=== PATIENT | male | born 1960 | race Two or more races ===

== ENCOUNTER 2017-08-29 08:50 | Inpatient (IN) | payer MEDICAID, OTHER ==
[~2017-08-29] VITALS: Ht 177.8 cm; Wt 108.9 kg
[~2017-08-29 08:50] MED LIST: AMLODIPINE BESY10 MG ORAL; ASPIRIN81 M3 PO; ATIVAN1 MG ORAL; BELLADONNA30 MG/100 TLING; BENAZEPRIL HCL40 MG ORAL; LISINOPRIL10 MG ORAL; MAGNESIUM250 M2 PO; TENORMIN25 MG ORAL; TRIBENZOR 40-11 EAC1 ORAL; TYLENOL650 MG/20. ORAL
[2017-08-29 09:00] VITALS: BP 174/108
[2017-08-29 10:01] LABS: BASOPHILS % (AUTO) 1.2 % (0.0-2.0); EOSINOPHILS % (AUTO) 2.1 % (0.0-3.0); HEMATOCRIT 33.6 % (42.0-52.0); HEMOGLOBIN 11.7 G/DL (14.2-18.0); LYMPHOCYTES % (AUTO) 35.2 % (20.0-45.0); MEAN CORPUSCULAR VOLUME 91 FL (80-99); MONOCYTES % (AUTO) 5.9 % (1.0-10.0); NEUTROPHILS % (AUTO) 55.6 % (45.0-75.0); PLATELET COUNT 316 K/UL (150-450); RED BLOOD COUNT 3.68 M/UL (4.70-6.10); RED CELL DISTRIBUTION WIDTH 11.1 % (11.6-14.8)
[2017-08-29 10:05] LABS: ANION GAP 14 mmol/L (5-15); BLOOD UREA NITROGEN 48 mg/dL (7-18); CALCIUM 9.1 MG/DL (8.5-10.1); CARBON DIOXIDE 20 MMOL/L (21-32); CHLORIDE 102 MMOL/L (98-107); CREATININE 5.5 MG/DL (0.55-1.30); POTASSIUM 4.3 MMOL/L (3.5-5.1); SODIUM 136 MMOL/L (136-145)
[2017-08-29 10:10] LABS: ALANINE AMINOTRANSFERASE 27 U/L (12-78); ALBUMIN 3.4 G/DL (3.4-5.0); ALBUMIN/GLOBULIN RATIO 0.7 (1.0-2.7); ALKALINE PHOSPHATASE 76 U/L (46-116); ASPARTATE AMINO TRANSFERASE 19 U/L (15-37); BILIRUBIN,TOTAL 0.4 MG/DL (0.2-1.0)
[2017-08-29 10:27] LABS: APPEARANCE,URINE CLEAR; BILIRUBIN, URINE NEGATIVE (NEGATIVE); COLOR,URINE PALE YELLOW; GLUCOSE, URINE (UA) 1+ (NEGATIVE); KETONES,URINE NEGATIVE (NEGATIVE); LEUKOCYTE ESTERASE ,URINE NEGATIVE (NEGATIVE); NITRITE,URINE NEGATIVE (NEGATIVE); PH,URINE 6 (4.5-8.0); PROTEIN,URINE 4+ (NEGATIVE); UROBILINOGEN,URINE NORMAL MG/DL (0.0-1.0)
[2017-08-29 10:34] VITALS: BP 157/100
--- NOTE | 2017-08-29 10:45 | Diagnostic Imaging Report ---
Indication: Altered mental status Technique: Continuous helical CT scanning of the head was performed utilizing automated exposure control without intravenous contrast material. Axial and coronal reconstructions were obtained. Comparison: 11/03/2015 CT dose: Total DLP 1400 mGycm; CTDI vol 70.4 mGy Findings: There is no acute intracranial hemorrhage, mass effect or cortical edema. The ventricles, cisterns and sulci are prominent consistent with atrophy. Periventricular and subcortical hypoattenuation are seen, a nonspecific finding. There is an old lacunar infarct of the left internal capsule which is new from 11/03/2015. Old infarct in the left superior cerebellum is unchanged. Sella is grossly unremarkable. Visualized mastoid air cells and paranasal sinuses are unremarkable. No focal lesions of the bony calvarium or soft tissues of the scalp are seen. Impression: No evidence of acute intracranial hemorrhage, mass effect or cortical edema. MRI may be obtained for more sensitive evaluation as clinically indicated. Atrophy and nonspecific periventricular and subcortical hypoattenuation suggestive of chronic ischemic microvascular changes. Old lacunar infarct of the left internal capsule but new from 11/03/2015. Clinical correlation recommended. Old infarct in the left superior cerebellum. The CT scanner at [facility] is accredited by the [employer] and the scans are performed using protocols designed to limit radiation exposure to as low as reasonably achievable to attain images of sufficient resolution adequate for diagnostic evaluation.
--- NOTE | 2017-08-29 10:46 | Diagnostic Imaging Report ---
Indication: Chest pain Technique: XRAY Chest 1v Comparison: 12/03/2015 Findings: Cardiac silhouette is again prominent. There is no gross consolidation or pleural effusion although the left costophrenic angle is not included. Osseous structures are stable. Impression: Limited exam without inclusion of the left costophrenic angle. Otherwise no gross acute cardiopulmonary disease. Cardiomegaly.
--- NOTE | 2017-08-29 10:50 | Emergency Room Report ---
History of Present Illness General Chief Complaint: Chest Pain Source: Patient Present Illness HPI 56yo m complains of left upper chest and shoulder aching type constant pain radiating down his left arm with a sensation of numbness to his left arm He reports this started when he woke up today and was walking in the bathroom, reports BP was 220s/110s at home He reports he never felt weak in his arm and reports the pain seemed to be mostly in his shoulder but also his upper chest on the left side He denies syncope, leg swelling, cough, shortness of breath, slurred speech, weakness, or any other complaints Allergies: Coded Allergies: No Known Allergies (Unverified , 08/10/13) Patient History Past Medical History: see triage record Reviewed Nursing Documentation: PMH: Agreed, PSxH: Agreed Nursing Documentation-PMH Hx Cardiac Problems: Yes Hx Hypertension: Yes Hx Diabetes: Yes Hx Cancer: No Hx Gastrointestinal Problems: No Hx Neurological Problems: No Hx Cerebrovascular Accident: Yes Hx Dizziness: Yes Hx Headaches: Yes Hx Numbness: Yes - left arm Review of Systems All Other Systems: negative except mentioned in HPI Physical Exam Vital Signs Date Time Temp Pulse Resp B/P (MAP) Pulse Ox O2 Delivery O2 Flow Rate FiO2 08/29/17 08:53 97.4 98 24 215/124 99 Room Air 97.3 Sp02 EP Interpretation: reviewed, normal General Appearance: no apparent distress, alert, non-toxic Head: normocephalic Eyes: bilateral eye normal inspection, bilateral eye PERRL, bilateral eye EOMI ENT: normal ENT inspection, hearing grossly normal, normal pharynx, no angioedema, normal voice, moist mucus membranes Neck: normal inspection, full range of motion, supple, supple/symm/no masses Respiratory: chest non-tender, lungs clear, normal breath sounds, chest symmetrical, palpation of chest normal Cardiovascular #1: normal peripheral pulses, regular rate, rhythm Cardiovascular #2: 2+ radial (R), 2+ radial (L) Gastrointestinal: normal inspection, non tender, soft, no mass, no guarding, no rebound Rectal: deferred Genitourinary: normal inspection, no CVA tenderness Musculoskeletal: back normal, gait/station normal, normal range of motion, non- tender, no calf tenderness Neurologic: alert, oriented x3, responsive, senior network engineer III-XII nml as tested - Completely normal cranial , motor strength/tone normal - 5 out of 5 strength in all , DTRs symmetric, sensory intact - Sensation intact to lig, cerebellar normal - Normal finger to nose n, speech normal, no pronator - No pronator drift at all Psychiatric: judgement/insight normal, memory normal, mood/affect normal, no suicidal/homicidal ideation Skin: normal color, no rash, warm/dry, normal turgor Lymphatic: no adenopathy Medical Decision Making Reaction to Intervention: Improved Diagnostic Impression: Primary Impression: Chest pain Additional Impression: Numbness ER Course 56-year-old male with history of hypertension, stroke with residual memory deficits, presents with left arm pain and numbness, as well as shoulder pain Symptoms concerning for possible acute coronary syndrome versus atypical stroke syndrome, normal head CT normal chest x-ray and normal EKG and labs Patient's blood pressure initially elevated now improved, we will admit as patient's Received aspirin and in no acute distress EKG Diagnostic Results EKG Time: 09:22 EP Interpretation: No ST elevations or depressions, no twi Rate: normal ST Segments: no acute changes ASA given to the pt in ED: Yes Rhythm Strip Diag. Results Rhythm Strip Time: 10:46 EP Interpretation: yes Rate: 87 Rhythm: NSR, no PVC's, no ectopy Chest X-Ray Diagnostic Results Chest X-Ray Diagnostic Results : Chest X-Ray Ordered: Yes # of Views/Limited/Complete: 1 View Indication: Chest Pain EP Interpretation: Yes PA Xray: Interpretation reviewed - Carmelo Higgins MD Interpretation: no consolidation, no effusion, no pneumothorax, no acute cardiopulmonary disease, other - +cardiomegaly, unchanged from previous cxr Impression: No acute disease Electronically Signed by: Carmelo Higgins MD CT/MRI/US Diagnostic Results CT/MRI/US Diagnostic Results : Imaging Test Ordered: ct head Impression no acute infarcts or bleeds, but +new infarcts in comparison from 2014 Last Vital Signs Date Time Temp Pulse Resp B/P (MAP) Pulse Ox O2 Delivery O2 Flow Rate FiO2 08/29/17 10:34 97.3 91 20 157/100 99 Room Air 97.3 Disposition: PLACE IN OBSERVATION Condition: Stable Signed Out To: Dr. Garcia to admit Referrals: [facility],REFERRING (PCP) CARMELO HIGGINS M.D Aug 29, 2017 10:50
[2017-08-29 11:23] VITALS: BP 131/81
[2017-08-29] MEDS ORDERED: Zolpidem 5mg tab ORAL PRN (12:45)
[2017-08-29] MEDS ORDERED: Atenolol 25mg tab ORAL SCH (18:00)
[2017-08-29] MEDS ORDERED: Heparin 5000 units/ml inj SUBQ SCH (21:00)
--- NOTE | 2017-08-29 21:45 | History and Physical Report ---
DATE OF ADMISSION: 08/29/2017 REASON FOR ADMISSION: Possible acute coronary syndrome versus acute CVA. HISTORY OF PRESENT ILLNESS: The patient is a 56-year-old male, who presents with left chest pain, left arm sensation and weakness. The patient woke up and noted also significantly elevated blood pressure. The patient presented to the emergency room and CT scan of the head, which is notable for old lacunar infarct. The patient denies any leg swelling, cough, shortness of breath, or slurred speech. PAST MEDICAL HISTORY: Notable for cardiac issues, hypertension, diabetes, prior history of CVA. MEDICATIONS: Reviewed. ALLERGIES: Reviewed. SOCIAL HISTORY: The patient is disabled. PHYSICAL EXAMINATION: GENERAL: A well-developed male, comfortable, presently in significant distress. VITAL SIGNS: Blood pressure 131/81, pulse 91, respirations 20, and saturation 99%. HEENT: Negative. NECK: Supple. No lymphadenopathy. LUNGS: Clear and symmetric. CARDIAC: S1 and S2. Regular rhythm. ABDOMEN: Soft and nontender. EXTREMITIES: No edema. NEUROLOGICALLY: Grossly nonfocal. LABORATORY AND DIAGNOSTIC DATA: Lab data reviewed. CT of the head showed old lacunar infarct. Laboratories, otherwise notable for white cell count of 14, BUN is 48, and creatinine 5.5. IMPRESSION: 1. Likely chronic renal failure. 2. Possible acute CVA. 3. Possible acute coronary syndrome. 4. History of hypertension. RECOMMENDATION: The patient was recommended serial troponins as well as nitrates, aspirin and beta-souleymane. Resumption of home medications and MRI of the brain as well as Cardiology evaluation as well as echocardiogram and carotid ultrasound. At present, the patient is refusing all care, would like to be discharged. I explained to him that this is potentially life-threatening and he may have some significant acute issues, however, the patient is adamant and will signed out against medical advice. The patient is fully alert and oriented x3 and he is fully competent to make his own decisions. Nurse was aware. Rashawn Garcia M.D. DR: NEO JOB#: [id number] CC:
[2017-08-30] MEDS ORDERED: Aspirin Baby 81mg ORAL SCH (09:00)
--- NOTE | 2017-08-30 16:27 | Cardiology Report ---
APPROVED REPORT EKG Measurement Heart [id number] Poor data quality, interpretation may be adversely affected Normal sinus rhythm Normal ECG
--- NOTE | 2017-09-02 03:45 | Discharge Summary 2 SIG ---
DATE OF ADMISSION: 08/29/2017 DATE OF SIGNING AGAINST MEDICAL ADVICE: 08/29/2017. REASON FOR ADMISSION: 56-year-old male with a history of hypertension and CVA, presented to emergency department with the left-sided chest pain, left arm numbness and weakness, left shoulder pain. Upon presentation in the emergency department, the patient was found to have blood pressure 215/124. WBC elevated -14.0. CT head revealed no acute intracranial pathology, but showed new infarct compared to 2015 CAT scan. Chest x-ray revealed cardiomegaly, but no acute cardiopulmonary pathology. Troponin was negative. BUN- 48 and creatinine -5.5. The patient 's symptoms were concerned for possible acute coronary syndrome, possible atypical stroke syndrome. The patient was given aspirin. The patient was not in acute distress. EKG revealed sinus rhythm. No acute ischemic changes. ADMITTING DIAGNOSES: The patient was admitted for further management to telemetry floor with following diagnoses : 1. Chest pain, 2. possible acute coronary syndrome. 3. Possible acute cerebrovascular accident. 4. Likely chronic renal failure. 5. Hypertension HOSPITAL COURSE: The patient was admitted to telemetry floor. Serial troponin were ordered. The patient was started on aspirin, beta souleymane, and nitrate. Blood pressure was carefully monitored. Antihypertensive regimen initiated. Blood pressure improved. Last blood pressure 131/81. DVT and GI prophylaxes provided. Blood pressure was controlled with beta-souleymane. Lipid panel within normal limits. Urinalysis negative. MRI of the brain was ordered. Supplemental oxygen and pulmonary toilet were on board as needed to keep pulse oximetry above 92. Carotid duplex was ordered. Cardiology evaluation was pending. Echocardiogram was ordered. The patient decided to sign against medical advice any ways. The risks and consequences of signing against medical advice were discussed with the patient. The patient verbalized understanding, but stated that he had appointment at 1700 and need to leave. The patient signed the form and left. FINAL DIAGNOSES: 1. Chest pain 2. Possible acute coronary syndrome. 3. Possible acute cerebrovascular accident with left arm and shoulder pain and numbness. 4. Likely chronic renal failure. 5. Hypertension. Rashawn Ishaaya, M.D. I have been assigned to dictate discharge summary on this account and I was not involved in the patient's management. Samantha Petersen (Vanchtein) NRosemariePRosemarie DR: CLEO JOB#: [id number] CC: AVNI
== END 2017-08-29 13:05 | disposition left against medical advice (07) | DRG 198 ==
LOC: EMR 09:30 → EDBEDREQ 10:57 → 2E 11:15
DX: I24.9 Acute ischemic heart disease, unspecified (principal); I63.9 Cerebral infarction, unspecified; I12.9 Hypertensive chronic kidney disease with stage 1 through stage 4 chronic kidney disease, or unspecified chronic kidney disease; N18.9 Chronic kidney disease, unspecified
CPT/HCPCS: 36415; 70450; 71045; 80053; 81001; 84484; 85025; 93005; 99285

== ENCOUNTER 2017-12-25 08:33 | Inpatient (IN) | payer OTHER ==
[~2017-12-25] VITALS: Ht 177.8 cm; Wt 95.3 kg
[2017-12-25] MEDS ORDERED: Nitroglycerin Subl 0.4mg tab SL PRN (09:00)
--- NOTE | 2017-12-25 09:01 | Emergency Room Report ---
History of Present Illness General Chief Complaint: Chest Pain Source: Patient Present Illness HPI 57-year-old male since ED complaining of chest pain. Started at 3 AM while sleeping. Left-sided, sharp, 3/10, radiating down L arm. Denies shortness of breath. Notes history of heart disease. States he was admitted in October for chest pain at that time it was told that he has congestive heart failure and he may have renal failure as well. Denies drug use. No other aggravating relieving factors. Denies any other associated symptoms Allergies: Coded Allergies: No Known Allergies (Unverified , 08/10/13) Patient History Past Medical History: DM, HTN, CVA/TIA Past Surgical History: none Pertinent Family History: none Social History: Denies: smoking, alcohol use, drug use Immunizations: UTD Reviewed Nursing Documentation: PMH: Agreed; PSxH: Agreed Nursing Documentation-PMH Hx Cardiac Problems: Yes Hx Hypertension: Yes Hx Diabetes: Yes Hx Cancer: No Hx Gastrointestinal Problems: No Hx Dialysis: No - renal failure Hx Neurological Problems: No Hx Cerebrovascular Accident: Yes Hx Dizziness: Yes Hx Headaches: Yes Hx Numbness: Yes - left arm Review of Systems All Other Systems: negative except mentioned in HPI Physical Exam Vital Signs Date Time Temp Pulse Resp B/P (MAP) Pulse Ox O2 Delivery O2 Flow Rate FiO2 12/25/17 08:37 98.3 82 18 140/88 96 Room Air 98.2 Sp02 EP Interpretation: reviewed, normal General Appearance: no apparent distress, alert, GCS 15, non-toxic Head: normocephalic, atraumatic Eyes: bilateral eye normal inspection, bilateral eye PERRL ENT: hearing grossly normal, normal pharynx, no angioedema, normal voice Neck: full range of motion, supple/symm/no masses Respiratory: chest non-tender, lungs clear, normal breath sounds, speaking full sentences Cardiovascular #1: regular rate, rhythm, no edema Cardiovascular #2: 2+ carotid (R), 2+ carotid (L), 2+ radial (R), 2+ radial (L) , 2+ dorsalis pedis (R), 2+ dorsalis pedis (L) Gastrointestinal: normal bowel sounds, non tender, soft, non-distended, no guarding, no rebound Rectal: deferred Genitourinary: normal inspection, no CVA tenderness Musculoskeletal: back normal, gait/station normal, normal range of motion, non- tender Neurologic: alert, oriented x3, responsive, motor strength/tone normal, sensory intact, speech normal Psychiatric: judgement/insight normal, memory normal, mood/affect normal, no suicidal/homicidal ideation Reflexes: 3+ bicep (R), 3+ bicep (L), 3+ tricep (R), 3+ tricep (L), 3+ knee (R) , 3+ knee (L) Skin: normal color, no rash, warm/dry, well hydrated Lymphatic: no adenopathy Medical Decision Making Diagnostic Impression: Primary Impression: ACS (acute coronary syndrome) Additional Impression: Renal failure Qualified Codes: N19 - Unspecified kidney failure ER Course Hospital Course 57-year-old male presents ED complaining of chest pain, L arm numbness Differential diagnoses include: SD/unstable angina, contusion, muscle strain, PTX, rib fracture Clinical course Patient placed on stretcher. on magneto electrician. After initial history and physical I ordered labs, EKG, chest x-ray, NTG, CT head labs reviewed- no leukocytosis, hb/hct stable, K ok, BUN/Cr markedly elevated, trop x 1 negative EKG - NSR, no acute ischemic changes interpreted by me Chest x-ray- no acute process CT Head- no acute ischemic changes, old infarcts noted given aspirin. Case discussed with Dr. Carpenter/ Castro and he agreed to accept the patient to his service for further care and support I. I feel this is a highly complex case requiring extensive working including EKG/Rhythm strip, Xray/CT/US, Blood/urine lab work, repeat exams while in ED, and administration of strong opiates/narcotics for pain control, admission to hospital or close patient follow up. Diagnosis - ACS, renal failure admitted to telemetry in serious condition Labs Test 12/25/17 09:23 12/25/17 09:35 White Blood Count 7.9 K/UL (4.8-10.8) Red Blood Count 4.19 M/UL (4.70-6.10) Hemoglobin 12.7 G/DL (14.2-18.0) Hematocrit 38.3 % (42.0-52.0) Mean Corpuscular Volume 91 FL (80-99) Mean Corpuscular Hemoglobin 30.3 PG (27.0-31.0) Mean Corpuscular Hemoglobin Concent 33.1 G/DL (32.0-36.0) Red Cell Distribution Width 11.7 % (11.6-14.8) Platelet Count 277 K/UL (150-450) Mean Platelet Volume 6.0 FL (6.5-10.1) Neutrophils (%) (Auto) 56.6 % (45.0-75.0) Lymphocytes (%) (Auto) 33.2 % (20.0-45.0) Monocytes (%) (Auto) 7.0 % (1.0-10.0) Eosinophils (%) (Auto) 2.1 % (0.0-3.0) Basophils (%) (Auto) 1.0 % (0.0-2.0) Sodium Level 136 MMOL/L (136-145) Potassium Level 4.8 MMOL/L (3.5-5.1) Chloride Level 101 MMOL/L (98-107) Carbon Dioxide Level 25 MMOL/L (21-32) Anion Gap 10 mmol/L (5-15) Blood Urea Nitrogen 42 mg/dL (7-18) Creatinine 5.6 MG/DL (0.55-1.30) Estimat Glomerular Filtration Rate 10.6 mL/min (>60) Glucose Level 94 MG/DL (74-106) Calcium Level 9.6 MG/DL (8.5-10.1) Total Bilirubin 0.8 MG/DL (0.2-1.0) Aspartate Amino Transf (AST/SGOT) 19 U/L (15-37) Alanine Aminotransferase (ALT/SGPT) 33 U/L (12-78) Alkaline Phosphatase 78 U/L (46-116) Total Creatine Kinase 33 U/L (26-308) Creatine Kinase MB 0.5 NG/ML (0.0-3.6) Creatine Kinase MB Relative Index 1.5 Troponin I 0.000 ng/mL (0.000-0.056) Pro-B-Type Natriuretic Peptide 2618 pg/mL (0-125) Total Protein 8.5 G/DL (6.4-8.2) Albumin 3.8 G/DL (3.4-5.0) Globulin 4.7 g/dL Albumin/Globulin Ratio 0.8 (1.0-2.7) Urine Opiates Screen Negative (NEGATIVE) Urine Barbiturates Screen Negative (NEGATIVE) Phencyclidine (PCP) Screen Negative (NEGATIVE) Urine Amphetamines Screen Negative (NEGATIVE) Urine Benzodiazepines Screen Negative (NEGATIVE) Urine Cocaine Screen Negative (NEGATIVE) Urine Marijuana (THC) Screen Negative (NEGATIVE) EKG Diagnostic Results Rate: normal Rhythm: NSR ST Segments: no acute changes ASA given to the pt in ED: Yes Rhythm Strip Diag. Results EP Interpretation: yes Rhythm: NSR, no PVC's, no ectopy Chest X-Ray Diagnostic Results Chest X-Ray Diagnostic Results : Chest X-Ray Ordered: Yes # of Views/Limited/Complete: 1 View Indication: Chest Pain EP Interpretation: Yes Interpretation: no consolidation, no effusion, no pneumothorax, no acute cardiopulmonary disease Impression: No acute disease Electronically Signed by: Electronically signed by Emmett Hwang MD CT/MRI/US Diagnostic Results CT/MRI/US Diagnostic Results : Imaging Test Ordered: CT head Impression no acute process. old infarcts noted Last Vital Signs Date Time Temp Pulse Resp B/P (MAP) Pulse Ox O2 Delivery O2 Flow Rate FiO2 12/25/17 08:37 98.3 82 18 140/88 96 Room Air 98.2 Status: improved Disposition: ADMITTED INPATIENT Condition: Serious Emmett Hwang MD Dec 25, 2017 09:01
[2017-12-25 09:36] LABS: EOSINOPHILS % (AUTO) 2.1 % (0.0-3.0); HEMATOCRIT 38.3 % (42.0-52.0); HEMOGLOBIN 12.7 G/DL (14.2-18.0); LYMPHOCYTES % (AUTO) 33.2 % (20.0-45.0); MEAN CORPUSCULAR VOLUME 91 FL (80-99); NEUTROPHILS % (AUTO) 56.6 % (45.0-75.0); PLATELET COUNT 277 K/UL (150-450); RED BLOOD COUNT 4.19 M/UL (4.70-6.10); RED CELL DISTRIBUTION WIDTH 11.7 % (11.6-14.8); WHITE BLOOD COUNT 7.9 K/UL (4.8-10.8)
--- NOTE | 2017-12-25 09:43 | Diagnostic Imaging Report ---
Indication: Headache Technique: Contiguous 5 mm thick transaxial imaging of the head obtained in a Siemens Sensation [address] scanner. Soft tissue and bone windows generated. Automatic Exposure Control was utilized. Total Dose length Product (DLP): 1351.[address] Dose Index Volume (CTDIvol): 70.38 mGy Comparison: 08/29/2017 Findings: There is moderate prominence of the ventricles, basal cisterns, and cerebral sulci consistent with atrophy. Moderate, nonspecific, white matter hypoattenuation is noted throughout the brain consistent with chronic small vessel disease. Small lacunar infarct noted in the left basal ganglia region. This is in the area of the internal capsule. There is no midline shift, edema, acute hemorrhage, mass effect, or abnormal extra-axial fluid collections. Bones and extra osseous soft tissues are unremarkable. Impression: No acute intracranial bleed, mass effect or edema. Old lacunar infarct in the area of the left internal capsule. Moderate atrophy of the brain. Evidence of chronic small vessel disease involving white matter tracts. No significant change The CT scanner at [facility] is accredited by the [employer] and the scans are performed using dose optimization techniques as appropriate to a performed exam including Automatic Exposure control.
[2017-12-25 10:09] LABS: ANION GAP 10 mmol/L (5-15); BLOOD UREA NITROGEN 42 mg/dL (7-18); CALCIUM 9.6 MG/DL (8.5-10.1); CARBON DIOXIDE 25 MMOL/L (21-32); CHLORIDE 101 MMOL/L (98-107); CREATININE 5.6 MG/DL (0.55-1.30); POTASSIUM 4.8 MMOL/L (3.5-5.1); SODIUM 136 MMOL/L (136-145)
[2017-12-25 10:24] LABS: ALANINE AMINOTRANSFERASE 33 U/L (12-78); ALBUMIN 3.8 G/DL (3.4-5.0); ALBUMIN/GLOBULIN RATIO 0.8 (1.0-2.7); ALKALINE PHOSPHATASE 78 U/L (46-116); ASPARTATE AMINO TRANSFERASE 19 U/L (15-37); BILIRUBIN,TOTAL 0.8 MG/DL (0.2-1.0); CKMB 0.5 NG/ML (0.0-3.6); CREATINE KINASE 33 U/L (26-308)
--- NOTE | 2017-12-25 10:47 | Diagnostic Imaging Report ---
Indication: Chest pain Comparison: 08/29/2017 A single view chest radiograph was obtained. Findings: No definite infiltrate or pulmonary vascular congestion identified. The heart is enlarged. The aorta is mildly enlarged consistent with atherosclerotic vascular disease. The bones are unremarkable. Impression: No acute disease
[2017-12-25 11:00] VITALS: BP 110/79
[2017-12-25] MEDS ORDERED: LORazepam Inj 2mg/ml 1ml IV PRN (12:45)
[2017-12-25 13:00] VITALS: BP 146/98
--- NOTE | 2017-12-25 15:24 | Cardiac Electrophysiology PN ---
Subjective Subjective [id number] Objective Last 24 Hour Vital Signs Date Time Temp Pulse Resp B/P (MAP) Pulse Ox O2 Delivery O2 Flow Rate FiO2 12/25/17 12:57 98.2 80 18 110/79 96 Room Air 98.2 12/25/17 11:00 98.2 80 18 110/79 96 Room Air 98.2 12/25/17 09:27 174/107 12/25/17 08:37 98.3 82 18 140/88 96 Room Air 98.2 Laboratory Tests Test 12/25/17 09:23 12/25/17 09:35 White Blood Count 7.9 K/UL (4.8-10.8) Red Blood Count 4.19 M/UL (4.70-6.10) L Hemoglobin 12.7 G/DL (14.2-18.0) L Hematocrit 38.3 % (42.0-52.0) L Mean Corpuscular Volume 91 FL (80-99) Mean Corpuscular Hemoglobin 30.3 PG (27.0-31.0) Mean Corpuscular Hemoglobin Concent 33.1 G/DL (32.0-36.0) Red Cell Distribution Width 11.7 % (11.6-14.8) Platelet Count 277 K/UL (150-450) Mean Platelet Volume 6.0 FL (6.5-10.1) L Neutrophils (%) (Auto) 56.6 % (45.0-75.0) Lymphocytes (%) (Auto) 33.2 % (20.0-45.0) Monocytes (%) (Auto) 7.0 % (1.0-10.0) Eosinophils (%) (Auto) 2.1 % (0.0-3.0) Basophils (%) (Auto) 1.0 % (0.0-2.0) Sodium Level 136 MMOL/L (136-145) Potassium Level 4.8 MMOL/L (3.5-5.1) Chloride Level 101 MMOL/L (98-107) Carbon Dioxide Level 25 MMOL/L (21-32) Anion Gap 10 mmol/L (5-15) Blood Urea Nitrogen 42 mg/dL (7-18) H Creatinine 5.6 MG/DL (0.55-1.30) H Estimat Glomerular Filtration Rate 10.6 mL/min (>60) Glucose Level 94 MG/DL (74-106) Calcium Level 9.6 MG/DL (8.5-10.1) Total Bilirubin 0.8 MG/DL (0.2-1.0) Aspartate Amino Transf (AST/SGOT) 19 U/L (15-37) Alanine Aminotransferase (ALT/SGPT) 33 U/L (12-78) Alkaline Phosphatase 78 U/L (46-116) Total Creatine Kinase 33 U/L (26-308) Creatine Kinase MB 0.5 NG/ML (0.0-3.6) Creatine Kinase MB Relative Index 1.5 Troponin I 0.000 ng/mL (0.000-0.056) Pro-B-Type Natriuretic Peptide 2618 pg/mL (0-125) H Total Protein 8.5 G/DL (6.4-8.2) H Albumin 3.8 G/DL (3.4-5.0) Globulin 4.7 g/dL Albumin/Globulin Ratio 0.8 (1.0-2.7) L Urine Opiates Screen Negative (NEGATIVE) Urine Barbiturates Screen Negative (NEGATIVE) Phencyclidine (PCP) Screen Negative (NEGATIVE) Urine Amphetamines Screen Negative (NEGATIVE) Urine Benzodiazepines Screen Negative (NEGATIVE) Urine Cocaine Screen Negative (NEGATIVE) Urine Marijuana (THC) Screen Negative (NEGATIVE) Miko Pineda MD Dec 25, 2017 15:24
--- NOTE | 2017-12-25 15:53 | Diagnostic Imaging Report ---
Indication:Elevated Bun and Creatinine. Technique: Grayscale and duplex Doppler imaging of the kidneys performed. Comparison: None Findings: Wall the size of the right kidney is well maintained measuring about 13 cm in length, the cortex appears atrophic and there is a increased echogenicity of the kidney in general. Cortical medullary distinction is difficult on this exam. There is a cyst in the upper pole measuring 3 cm. The left kidney has a more normal appearance with relatively normal in contour, size and cortical echogenicity. There are multiple cysts in the left kidney. There is a probable cyst nonobstructive stone in the left kidney. The left kidney measures just less than 13 cm. There is no hydronephrosis. The IVC is grossly unremarkable. IMPRESSION: Abnormal appearance of the right kidney. This may be due to unilateral nephrosclerosis perhaps on the basis of a vascular disease. Nonobstructive stones suspected in the lower pole the left kidney. Multiple bilateral renal cysts. No evidence of obstructive nephropathy.
[2017-12-25 16:00] VITALS: BP 119/91
[2017-12-25] MEDS: Heparin 5000 units/ml inj SUBQ SCH ×2 (16:57→21:47)
--- NOTE | 2017-12-25 17:15 | History and Physical Report ---
DATE OF ADMISSION: 12/25/2017 REASON FOR ADMISSION: 1. Chest pain. 2. Acute kidney injury. 3. CKD stage 4. HISTORY OF PRESENT ILLNESS: The patient is a pleasant 57-year-old gentleman, who presented to emergency room complaining of chest pain. The patient was woken up with left-sided sharp chest pain down his left arm at approximately 3 a.m. The patient had been both here at [facility] in the recent past along with [facility]. He does have CKD 4. He says he was discharged from [facility] with a creatinine in the mid to low 4s and that he had declined any dialysis at that time. He says he feels tired and weak. No nausea, vomiting, or diarrhea at this time. PAST MEDICAL HISTORY: 1. Diabetes mellitus. 2. CKD stage 4. 3. Hypertension. 4. CVA/TIA. 5. Neuropathy. PAST SURGICAL HISTORY: None. ALLERGIES: No known drug allergies. FAMILY HISTORY: Positive for hypertension and diabetes. SOCIAL HISTORY: The patient denies tobacco, alcohol, or illicit drug use. REVIEW OF SYSTEMS: NEUROLOGIC: The patient denies headache, change in vision, syncope, or presyncopal episodes. CARDIOVASCULAR: He was having chest pressure with pain down the left arm. No palpitations. PULMONARY: No difficulty breathing, productive cough, or sputum. GASTROINTESTINAL/GENITOURINARY: No changes in urinary or bowel habits. No nausea, vomiting, or diarrhea. ENDOCRINOLOGY: No night sweats, fevers, or chills. PHYSICAL EXAMINATION: VITAL SIGNS: Blood pressure 110/79, respiratory rate 18, pulse 80, temperature 98.2, and 90% oxygen on room air. GENERAL: The patient is awake, alert, and in no acute distress. HEENT: Extraocular muscles intact. No lymphadenopathy noted. CARDIOVASCULAR: S1, S2. No rubs or gallops. PULMONARY: Clear to auscultation bilaterally. No rales, rhonchi or wheezes. ABDOMEN: Nondistended and nontender. EXTREMITY: No edema noted with fair pedal pulses. LABORATORY DATA: Laboratories dated 12/25/2017, white cell count 7.9, hemoglobin 12.7, and platelet count 277,000. Sodium 136, potassium 4.8, BUN 42, creatinine 5.6, and calcium 9.6. Troponin 0. Chest x-ray otherwise negative. ASSESSMENT AND PLAN: 1. Acute kidney injury on chronic kidney disease stage 4. Creatinine currently elevated at 5.6. We will discontinue lisinopril/benazepril. We will hold off intravenous fluids. The patient is not currently volume overloaded. Renal ultrasound to rule out any obstructive etiology with underlying acute kidney injury versus chronic kidney disease. Avoid any nephrotoxins. 2. Acute coronary syndrome with chest pain. The patient recently at [facility]. At this time, first troponin negative. Cardiology has been consulted. 3. Hypertension. We will continue Norvasc. Adjust medications as deemed appropriate. Avoid any nephrotoxins. 4. Deep venous thrombosis prophylaxis with heparin subcutaneous. 5. Anemia. Hemoglobin 12.7. Stable. No Epogen at this time. Woo Wheeler MD DR: JUANCARLOS JOB#: [id number] CC:
[2017-12-25] MEDS: Atenolol 25mg tab ORAL SCH (18:20)
--- NOTE | 2017-12-25 19:30 | Consultation ---
DATE OF CONSULTATION: 12/25/2017 CARDIOLOGY CONSULTATION CONSULTING PHYSICIAN: Miko Pineda M.D. REFERRING PHYSICIAN: Gregg Carpenter M.D. REASON FOR CONSULTATION: Chest pain. HISTORY OF PRESENT ILLNESS: The patient is a 57-year-old, Filipino gentleman with history of hypertension, diabetes, and history of congestive heart failure, as well as renal failure, presented to the emergency room with chest pain that started around 3 o'clock in the morning while sleeping. The patient stated that he had similar symptoms and he was evaluated in October and was evaluated by Dr. Grove at [facility], however, cardiac catheterization was not done in view of renal failure. The patient stated that he also was diagnosed with congestive heart failure, ejection fraction of 30%. The patient's EKG shows sinus rhythm with nonspecific ST-T wave abnormality and a Cardiology consultation was obtained for further evaluation. REVIEW OF SYSTEMS: Review of systems was negative other than what was mentioned in the history of present illness. PAST MEDICAL HISTORY: As mentioned above. FAMILY HISTORY: Noncontributory. SOCIAL HISTORY: He lives at home. Does not smoke or drink alcohol. PHYSICAL EXAMINATION: VITAL SIGNS: Blood pressure is 110/79, pulse is 80, respirations 18, and he is afebrile. HEAD AND NECK: Showed no JVD or carotid bruits. LUNGS: Clear. CARDIOVASCULAR: Regular S1 and S2 with no gallop or murmur. ABDOMEN: Soft. EXTREMITIES: No pitting edema. LABORATORY AND DIAGNOSTIC DATA: His labs show white count of 7.9, hemoglobin 12.7, hematocrit 38.7, and platelet count of 277. Sodium 136, potassium 4.8, BUN of 43, creatinine of 5.6, and glucose of 94. Troponin is negative. BNP is 2618. Urine toxicology is negative. ASSESSMENT AND PLAN: 1. Chest pain. We will completely rule out myocardial infarction protocol. EKG shows nonspecific ST-T wave abnormality. We will get an echocardiogram as well. Obviously, he is not a candidate for cardiac catheterization as his creatinine is 5.6, and he is on verge of going on dialysis. 2. Cardiomyopathy. Again, we will repeat echocardiogram. This is based on the patient's statement. His BNP, however, is more than 2600. He is on atenolol 25 mg daily, hold off on diuretic until the patient is evaluated by Nephrology. 3. Hypertension, on atenolol and amlodipine, however, if the heart failure is confirmed, we will switch atenolol to Coreg and change amlodipine to a combination of hydralazine and nitrate. 4. Stage IV renal failure. Further evaluation by Dr. Carpenter. Thank very much for allowing me to participate in the care of this patient. Please do not hesitate to contact me for any questions regarding my evaluation. Miko Pineda M.D. DR: PUJA JOB#: [id number] CC:
[2017-12-25 20:00] VITALS: BP 127/80
[2017-12-25] MEDS: Docusate 100mg cap ORAL SCH (21:00)
[2017-12-26] VITALS: BP 119/80
[2017-12-26 04:00] VITALS: BP 121/75
[2017-12-26] MEDS: Heparin 5000 units/ml inj SUBQ SCH ×3 (06:00→20:52)
[2017-12-26 08:00] VITALS: BP 120/72
[2017-12-26 08:47] LABS: BASOPHILS % (AUTO) 0.7 % (0.0-2.0); EOSINOPHILS % (AUTO) 2.4 % (0.0-3.0); HEMATOCRIT 34.9 % (42.0-52.0); HEMOGLOBIN 11.6 G/DL (14.2-18.0); LYMPHOCYTES % (AUTO) 31.4 % (20.0-45.0); MEAN CORPUSCULAR VOLUME 91 FL (80-99); MONOCYTES % (AUTO) 4.4 % (1.0-10.0); NEUTROPHILS % (AUTO) 61.1 % (45.0-75.0); PLATELET COUNT 293 K/UL (150-450); RED BLOOD COUNT 3.83 M/UL (4.70-6.10); RED CELL DISTRIBUTION WIDTH 11.7 % (11.6-14.8); WHITE BLOOD COUNT 8.6 K/UL (4.8-10.8)
[2017-12-26 09:22] LABS: ANION GAP 9 mmol/L (5-15); BLOOD UREA NITROGEN 44 mg/dL (7-18); CALCIUM 9.1 MG/DL (8.5-10.1); CARBON DIOXIDE 24 MMOL/L (21-32); CHLORIDE 105 MMOL/L (98-107); CREATININE 5.9 MG/DL (0.55-1.30); POTASSIUM 4.4 MMOL/L (3.5-5.1); SODIUM 138 MMOL/L (136-145)
[2017-12-26] MEDS: Docusate 100mg cap ORAL SCH ×2 (10:01→20:52)
[2017-12-26] MEDS: Aspirin EC 81mg tab ORAL SCH (10:01)
[2017-12-26] MEDS: Atenolol 25mg tab ORAL SCH (10:02)
--- NOTE | 2017-12-26 10:17 | Nephrology Progress Note ---
Assessment/Plan Assessment/Plan 1. CKD 5- Cr 5.6-5.9 - Chronic, HTN Nephrosclerosis - Cardiorenal - at this time patient will be dialysis dependant with 3-6 months, he currently declines HD 2. ACS/Chest Pain- await ECHO results - patient might be ameable to a heart catherization and dialysis peding ECHo results - hold off diuretics. Patient not SOB and CP resulved 3. HTN- at goal, on Norvasc and Atenolol 4. DVT prophylaxsis with heaprin sub q 5. Neuropathy- gabapentin Subjective Date patient seen: Dec 26, 2017 Time patient seen: 10:12 ROS Limited/Unobtainable: No Allergies: Coded Allergies: No Known Allergies (Unverified , 08/10/13) All Systems: reviewed and negative except above Subjective Patient denies any further chest pain Objective Last 24 Hour Vital Signs Date Time Temp Pulse Resp B/P (MAP) Pulse Ox O2 Delivery O2 Flow Rate FiO2 12/26/17 10:02 66 120/72 12/26/17 10:01 66 120/72 12/26/17 04:00 98.6 71 18 121/75 (90) 97 98.6 12/26/17 04:00 67 12/26/17 00:00 67 12/26/17 00:00 98.4 69 18 119/80 (93) 96 98.4 12/25/17 21:00 Room Air 12/25/17 20:00 98.2 70 18 127/80 (96) 96 98.2 12/25/17 20:00 68 12/25/17 18:20 80 119/91 12/25/17 16:55 77 146/98 12/25/17 16:06 Room Air 12/25/17 16:00 97.7 80 20 119/91 (100) 97 97.7 12/25/17 15:53 91 12/25/17 13:00 98.3 77 20 146/98 (114) 95 98.3 12/25/17 12:57 98.2 80 18 110/79 96 Room Air 98.2 12/25/17 11:00 98.2 80 18 110/79 96 Room Air 98.2 Intake and Output 12/25/17 12/26/17 19:00 07:00 Intake Total 160 ml 250 ml Output Total 100 ml Balance 60 ml 250 ml Intake Oral 160 ml 250 ml Output Urine Total 100 ml # Voids 4 3 # Bowel Movements 1 Laboratory Tests 12/26/17 06:45: White Blood Count 8.6, Red Blood Count 3.83L, Hemoglobin 11.6L, Hematocrit 34.9L , Mean Corpuscular Volume 91, Mean Corpuscular Hemoglobin 30.3, Mean Corpuscular Hemoglobin Concent 33.2, Red Cell Distribution Width 11.7, Platelet Count 293, Mean Platelet Volume 6.3L, Neutrophils (%) (Auto) 61.1, Lymphocytes ( %) (Auto) 31.4, Monocytes (%) (Auto) 4.4, Eosinophils (%) (Auto) 2.4, Basophils (%) (Auto) 0.7, Sodium Level 138, Potassium Level 4.4, Chloride Level 105, Carbon Dioxide Level 24, Anion Gap 9, Blood Urea Nitrogen 44H, Creatinine 5.9H, Estimat Glomerular Filtration Rate 10.0, Glucose Level 120H, Calcium Level 9.1, Troponin I 0.000, Pro-B-Type Natriuretic Peptide 2397H Height (Feet): 5 Height (Inches): 10.00 Weight (Pounds): 210 General Appearance: no apparent distress, alert EENT: PERRL/EOMI Neck: non-tender, normal alignment, supple Cardiovascular: normal rate, regular rhythm Respiratory/Chest: lungs clear, normal breath sounds Abdomen: non tender, soft Edema: no edema noted Arm (L), no edema noted Arm (R), no edema noted Leg (L), no edema noted Leg (R), no edema noted Pedal (L), no edema noted Pedal (R), no edema noted Generalized Woo Wheeler M.D. Dec 26, 2017 10:17
[2017-12-26 12:00] VITALS: BP 121/81
--- NOTE | 2017-12-26 15:07 | Cardiac Electrophysiology PN ---
Assessment/Plan Assessment/Plan 1. Chest pain. Ruled out for myocardial infarction. EKG shows nonspecific ST-T wave abnormality. Likely due to volume overload of renal failure. Echocardiogram showed EF 55%. Obviously, he is not a candidate for cardiac catheterization as his creatinine is 5.6, and he is on verge of going on dialysis. Schedule for stress test on Thursday 2. Cardiomyopathy ?. BNP is more than 2600. Echocardiogram showed Nl EF and could be due to diastolic dyfunction as . On atenolol 25 mg daily 3. Hypertension, on atenolol and amlodipine, 4. Stage IV renal failure. Further evaluation by Dr. Carpenter. Refusing HD Subjective Subjective Refusing HD. No CP or SOB. Objective Last 24 Hour Vital Signs Date Time Temp Pulse Resp B/P (MAP) Pulse Ox O2 Delivery O2 Flow Rate FiO2 12/26/17 12:00 98.1 80 20 121/81 (94) 99 98.1 12/26/17 11:47 64 12/26/17 10:02 66 120/72 12/26/17 10:01 66 120/72 12/26/17 09:00 Room Air 12/26/17 08:00 98.2 66 20 120/72 (88) 97 98.2 12/26/17 07:59 66 12/26/17 04:00 98.6 71 18 121/75 (90) 97 98.6 12/26/17 04:00 67 12/26/17 00:00 67 12/26/17 00:00 98.4 69 18 119/80 (93) 96 98.4 12/25/17 21:00 Room Air 12/25/17 20:00 98.2 70 18 127/80 (96) 96 98.2 12/25/17 20:00 68 12/25/17 18:20 80 119/91 12/25/17 16:55 77 146/98 12/25/17 16:06 Room Air 12/25/17 16:00 97.7 80 20 119/91 (100) 97 97.7 12/25/17 15:53 91 Intake and Output 12/25/17 12/26/17 19:00 07:00 Intake Total 160 ml 250 ml Output Total 100 ml Balance 60 ml 250 ml Intake Oral 160 ml 250 ml Output Urine Total 100 ml # Voids 4 3 # Bowel Movements 1 Laboratory Tests Test 12/26/17 06:45 White Blood Count 8.6 K/UL (4.8-10.8) Red Blood Count 3.83 M/UL (4.70-6.10) L Hemoglobin 11.6 G/DL (14.2-18.0) L Hematocrit 34.9 % (42.0-52.0) L Mean Corpuscular Volume 91 FL (80-99) Mean Corpuscular Hemoglobin 30.3 PG (27.0-31.0) Mean Corpuscular Hemoglobin Concent 33.2 G/DL (32.0-36.0) Red Cell Distribution Width 11.7 % (11.6-14.8) Platelet Count 293 K/UL (150-450) Mean Platelet Volume 6.3 FL (6.5-10.1) L Neutrophils (%) (Auto) 61.1 % (45.0-75.0) Lymphocytes (%) (Auto) 31.4 % (20.0-45.0) Monocytes (%) (Auto) 4.4 % (1.0-10.0) Eosinophils (%) (Auto) 2.4 % (0.0-3.0) Basophils (%) (Auto) 0.7 % (0.0-2.0) Sodium Level 138 MMOL/L (136-145) Potassium Level 4.4 MMOL/L (3.5-5.1) Chloride Level 105 MMOL/L (98-107) Carbon Dioxide Level 24 MMOL/L (21-32) Anion Gap 9 mmol/L (5-15) Blood Urea Nitrogen 44 mg/dL (7-18) H Creatinine 5.9 MG/DL (0.55-1.30) H Estimat Glomerular Filtration Rate 10.0 mL/min (>60) Glucose Level 120 MG/DL (74-106) H Calcium Level 9.1 MG/DL (8.5-10.1) Troponin I 0.000 ng/mL (0.000-0.056) Pro-B-Type Natriuretic Peptide 2397 pg/mL (0-125) H Objective HEAD AND NECK: No JVD LUNGS: Clear. CARDIOVASCULAR: Regular S1 and S2 with no gallop or murmur. ABDOMEN: Soft. EXTREMITIES: No pitting edema. Miko Pineda MD Dec 26, 2017 15:07
[2017-12-26] MEDS ORDERED: Lexiscan 0.4mg/5ml syringe IV PRN (15:15)
[2017-12-26 16:00] VITALS: BP 124/88
[2017-12-26 20:00] VITALS: BP 131/85
[2017-12-27] VITALS: BP 108/56
[2017-12-27 04:00] VITALS: BP 111/66
[2017-12-27] MEDS: Heparin 5000 units/ml inj SUBQ SCH ×3 (05:27→22:16)
[2017-12-27 08:00] VITALS: BP 151/85
[2017-12-27 08:13] LABS: BASOPHILS % (AUTO) 0.8 % (0.0-2.0); EOSINOPHILS % (AUTO) 2.8 % (0.0-3.0); HEMATOCRIT 34.4 % (42.0-52.0); HEMOGLOBIN 11.8 G/DL (14.2-18.0); LYMPHOCYTES % (AUTO) 27.6 % (20.0-45.0); MEAN CORPUSCULAR VOLUME 92 FL (80-99); MONOCYTES % (AUTO) 6.4 % (1.0-10.0); NEUTROPHILS % (AUTO) 62.4 % (45.0-75.0); PLATELET COUNT 268 K/UL (150-450); RED BLOOD COUNT 3.74 M/UL (4.70-6.10); RED CELL DISTRIBUTION WIDTH 11.7 % (11.6-14.8); WHITE BLOOD COUNT 10.2 K/UL (4.8-10.8)
[2017-12-27 08:22] LABS: ANION GAP 14 mmol/L (5-15); BLOOD UREA NITROGEN 44 mg/dL (7-18); CALCIUM 8.7 MG/DL (8.5-10.1); CARBON DIOXIDE 20 MMOL/L (21-32); CHLORIDE 105 MMOL/L (98-107); CREATININE 5.8 MG/DL (0.55-1.30); POTASSIUM 4.4 MMOL/L (3.5-5.1); SODIUM 139 MMOL/L (136-145)
[2017-12-27] MEDS: Docusate 100mg cap ORAL SCH ×2 (09:00→20:26)
[2017-12-27] MEDS: Aspirin EC 81mg tab ORAL SCH (09:16)
[2017-12-27] MEDS: Atenolol 25mg tab ORAL SCH (09:24)
--- NOTE | 2017-12-27 10:57 | Nephrology Progress Note ---
Assessment/Plan Assessment/Plan 1. CKD 5- Cr 5.6-5.9 - Chronic, HTN Nephrosclerosis - Cardiorenal component - at this time patient will be dialysis dependant with 3-6 months, he currently declines HD - if patient needs heart catherization, patient may agree to HD if required 2. ACS/Chest Pain- ECHO NL EF. Hernandez Dfx - stress test tomorrow - hold off diuretics. Patient not SOB and CP resolved - patient may require heart catherization and may accept dialysis if necessary 3. HTN- at goal, on Norvasc and Atenolol 4. DVT prophylaxsis with heaprin sub q 5. Neuropathy- gabapentin Subjective Date patient seen: Dec 27, 2017 Time patient seen: 10:54 ROS Limited/Unobtainable: No Constitutional: Reports: weakness Allergies: Coded Allergies: No Known Allergies (Unverified , 08/10/13) All Systems: reviewed and negative except above Subjective Patient denies any further chest pain , just feeling weak Objective Last 24 Hour Vital Signs Date Time Temp Pulse Resp B/P (MAP) Pulse Ox O2 Delivery O2 Flow Rate FiO2 12/27/17 09:24 69 151/85 12/27/17 09:24 69 151/85 12/27/17 04:00 65 12/27/17 04:00 98.9 60 20 111/66 (81) 95 98.9 12/27/17 00:00 99.2 66 20 108/56 (73) 95 99.2 12/27/17 00:00 65 12/26/17 21:00 Room Air 12/26/17 20:00 97.7 66 20 131/85 (100) 96 97.7 12/26/17 20:00 60 12/26/17 16:00 98.3 71 20 124/88 (100) 99 98.3 12/26/17 12:00 98.1 80 20 121/81 (94) 99 98.1 12/26/17 11:47 64 Intake and Output 12/26/17 12/27/17 19:00 07:00 Intake Total 1090 ml 200 ml Balance 1090 ml 200 ml Intake Oral 1090 ml 200 ml # Voids 2 2 # Bowel Movements 1 Laboratory Tests 12/27/17 07:10: White Blood Count 10.2, Red Blood Count 3.74L, Hemoglobin 11.8L, Hematocrit 34.4L, Mean Corpuscular Volume 92, Mean Corpuscular Hemoglobin 31.5H, Mean Corpuscular Hemoglobin Concent 34.2, Red Cell Distribution Width 11.7, Platelet Count 268, Mean Platelet Volume 6.0L, Neutrophils (%) (Auto) 62.4, Lymphocytes ( %) (Auto) 27.6, Monocytes (%) (Auto) 6.4, Eosinophils (%) (Auto) 2.8, Basophils (%) (Auto) 0.8, Sodium Level 139, Potassium Level 4.4, Chloride Level 105, Carbon Dioxide Level 20L, Anion Gap 14, Blood Urea Nitrogen 44H, Creatinine 5.8H , Estimat Glomerular Filtration Rate 10.2, Glucose Level 106, Calcium Level 8.7 Height (Feet): 5 Height (Inches): 10.00 Weight (Pounds): 210 General Appearance: WD/WN, no apparent distress, alert EENT: normal ENT inspection Neck: normal alignment, supple Cardiovascular: normal rate, regular rhythm Respiratory/Chest: lungs clear, normal breath sounds Abdomen: normal bowel sounds, non tender, soft Edema: no edema noted Arm (L), no edema noted Arm (R), no edema noted Leg (L), no edema noted Leg (R), no edema noted Pedal (L), no edema noted Pedal (R), no edema noted Generalized Woo Wheeler M.D. Dec 27, 2017 10:57
[2017-12-27 12:00] VITALS: BP 144/88
--- NOTE | 2017-12-27 14:14 | Cardiac Electrophysiology PN ---
Assessment/Plan Assessment/Plan 1. Chest pain. Ruled out for myocardial infarction. EKG shows nonspecific ST-T wave abnormality. Likely due to volume overload of renal failure. Echocardiogram showed EF 55%. Obviously, he is not a candidate for cardiac catheterization as his creatinine is 5.6, and he is on verge of going on dialysis. Stress test on Thursday 2. Cardiomyopathy ?. BNP is more than 2600. Echocardiogram showed Nl EF and could be due to diastolic dyfunction as . On atenolol 25 mg daily 3. Hypertension, on atenolol and amlodipine, 4. Stage IV renal failure. Further evaluation by Dr. Carpenter. Refusing HD Subjective Subjective No CP or SOB. Feeling better. Awaiting stress test Thursday Objective Last 24 Hour Vital Signs Date Time Temp Pulse Resp B/P (MAP) Pulse Ox O2 Delivery O2 Flow Rate FiO2 12/27/17 09:24 69 151/85 12/27/17 09:24 69 151/85 12/27/17 04:00 65 12/27/17 04:00 98.9 60 20 111/66 (81) 95 98.9 12/27/17 00:00 99.2 66 20 108/56 (73) 95 99.2 12/27/17 00:00 65 12/26/17 21:00 Room Air 12/26/17 20:00 97.7 66 20 131/85 (100) 96 97.7 12/26/17 20:00 60 12/26/17 16:00 98.3 71 20 124/88 (100) 99 98.3 Intake and Output 12/26/17 12/27/17 19:00 07:00 Intake Total 1090 ml 200 ml Balance 1090 ml 200 ml Intake Oral 1090 ml 200 ml # Voids 2 2 # Bowel Movements 1 Laboratory Tests Test 12/27/17 07:10 White Blood Count 10.2 K/UL (4.8-10.8) Red Blood Count 3.74 M/UL (4.70-6.10) L Hemoglobin 11.8 G/DL (14.2-18.0) L Hematocrit 34.4 % (42.0-52.0) L Mean Corpuscular Volume 92 FL (80-99) Mean Corpuscular Hemoglobin 31.5 PG (27.0-31.0) H Mean Corpuscular Hemoglobin Concent 34.2 G/DL (32.0-36.0) Red Cell Distribution Width 11.7 % (11.6-14.8) Platelet Count 268 K/UL (150-450) Mean Platelet Volume 6.0 FL (6.5-10.1) L Neutrophils (%) (Auto) 62.4 % (45.0-75.0) Lymphocytes (%) (Auto) 27.6 % (20.0-45.0) Monocytes (%) (Auto) 6.4 % (1.0-10.0) Eosinophils (%) (Auto) 2.8 % (0.0-3.0) Basophils (%) (Auto) 0.8 % (0.0-2.0) Sodium Level 139 MMOL/L (136-145) Potassium Level 4.4 MMOL/L (3.5-5.1) Chloride Level 105 MMOL/L (98-107) Carbon Dioxide Level 20 MMOL/L (21-32) L Anion Gap 14 mmol/L (5-15) Blood Urea Nitrogen 44 mg/dL (7-18) H Creatinine 5.8 MG/DL (0.55-1.30) H Estimat Glomerular Filtration Rate 10.2 mL/min (>60) Glucose Level 106 MG/DL (74-106) Calcium Level 8.7 MG/DL (8.5-10.1) Objective HEAD AND NECK: No JVD LUNGS: Clear. CARDIOVASCULAR: Regular S1 and S2 with no gallop or murmur. ABDOMEN: Soft. EXTREMITIES: No pitting edema. Miko Pineda MD Dec 27, 2017 14:14
[2017-12-27 16:00] VITALS: BP 131/80
[2017-12-27 20:00] VITALS: BP 121/84
[2017-12-27] MEDS: Cephalexin 250mg Cap ORAL SCH (22:00)
[2017-12-28] VITALS: BP 140/79
[2017-12-28 04:00] VITALS: BP 116/65
[2017-12-28 05:41] VITALS: BP 116/65
[2017-12-28] MEDS: Heparin 5000 units/ml inj SUBQ SCH ×2 (06:29→14:00)
[2017-12-28 07:48] LABS: ANION GAP 10 mmol/L (5-15); BLOOD UREA NITROGEN 47 mg/dL (7-18); CALCIUM 8.8 MG/DL (8.5-10.1); CARBON DIOXIDE 20 MMOL/L (21-32); CHLORIDE 108 MMOL/L (98-107); CREATININE 5.7 MG/DL (0.55-1.30); POTASSIUM 4.5 MMOL/L (3.5-5.1); SODIUM 138 MMOL/L (136-145)
[2017-12-28 08:00] VITALS: BP 142/90
[2017-12-28] MEDS: Cephalexin 250mg Cap ORAL SCH (08:18)
[2017-12-28] MEDS: Aspirin EC 81mg tab ORAL SCH (08:19)
[2017-12-28] MEDS: Docusate 100mg cap ORAL SCH (08:19)
[2017-12-28] MEDS: Atenolol 25mg tab ORAL SCH (09:00)
--- NOTE | 2017-12-28 10:16 | Cardiology Report ---
APPROVED REPORT EKG Measurement Heart [id number] Normal sinus rhythm Nonspecific ST and T wave abnormality Abnormal ECG
--- NOTE | 2017-12-28 10:44 | Nephrology Progress Note ---
Assessment/Plan Assessment/Plan 1. CKD 5- Cr 5.6-5.9. Stable - Chronic, HTN Nephrosclerosis, cardiorenal component - at this time patient will be dialysis dependant with 3-6 months, he currently continues to declines HD - DC today post stress test 2. ACS/Chest Pain- ECHO NL EF 55%. Hernandez Dfx - stress test today - hold off diuretics. Patient not SOB and CP resolved 3. HTN- at goal, on Norvasc and Atenolol 4. DVT prophylaxsis with heaprin sub q 5. Neuropathy- gabapentin Subjective Date patient seen: Dec 28, 2017 Time patient seen: 10:42 ROS Limited/Unobtainable: No Allergies: Coded Allergies: No Known Allergies (Unverified , 08/10/13) All Systems: reviewed and negative except above Subjective Patient denies any further chest pain Objective Last 24 Hour Vital Signs Date Time Temp Pulse Resp B/P (MAP) Pulse Ox O2 Delivery O2 Flow Rate FiO2 12/28/17 09:32 Room Air 12/28/17 08:00 99.5 63 18 142/90 (107) 96 99.5 12/28/17 08:00 64 12/28/17 05:41 98.2 64 20 116/65 (82) 97 98.2 12/28/17 04:00 98.2 64 20 116/65 (82) 97 98.2 12/28/17 04:00 59 12/28/17 00:00 60 12/28/17 00:00 97.9 60 20 140/79 (99) 97 97.9 12/27/17 21:00 Room Air 12/27/17 20:00 70 12/27/17 20:00 99.0 68 20 121/84 (96) 97 99.0 12/27/17 16:00 70 12/27/17 16:00 98.0 72 20 131/80 (97) 98 98.0 12/27/17 12:00 68 12/27/17 12:00 98.7 68 20 144/88 (106) 97 98.7 Laboratory Tests 12/28/17 06:35: Sodium Level 138, Potassium Level 4.5, Chloride Level 108H, Carbon Dioxide Level 20L, Anion Gap 10, Blood Urea Nitrogen 47H, Creatinine 5.7H, Estimat Glomerular Filtration Rate 10.4, Glucose Level 100, Calcium Level 8.8 Height (Feet): 5 Height (Inches): 10.00 Weight (Pounds): 210 General Appearance: no apparent distress, alert EENT: normal ENT inspection Neck: non-tender, normal alignment, supple Cardiovascular: normal rate, regular rhythm Respiratory/Chest: lungs clear, normal breath sounds Abdomen: non tender, soft Edema: no edema noted Arm (L), no edema noted Arm (R), no edema noted Leg (L), no edema noted Leg (R), no edema noted Pedal (L), no edema noted Pedal (R), no edema noted Generalized Woo Wheeler M.D. Dec 28, 2017 10:44
[2017-12-28 12:00] VITALS: BP 137/84
--- NOTE | 2017-12-28 14:22 | Discharge Instructions ---
Discharge Instructions Discharge Instructions Services at Discharge: home health services Diet: 2 GM sodium (low sodium) Resume Normal Activity?: Yes Activity: light activity, as tolerated Pneumonia Vaccine: vaccine not indicated Influenza Vaccine (Mar to Aug): vaccine not indicated Follow Up Orders 1. F/U Renal 1 week- appointment given 2. F/U cardiology 1 week For Congestive Heart Failure Reminder Report to your physician any weight gain of 5 pounds or more in one week. Woo Wheeler M.D. Dec 28, 2017 14:22
--- NOTE | 2017-12-28 14:37 | Cardiac Electrophysiology PN ---
Assessment/Plan Assessment/Plan 1. Chest pain. Ruled out for myocardial infarction. EKG shows nonspecific ST-T wave abnormality. Likely due to volume overload of renal failure. Echocardiogram showed EF 55%. Obviously, he is not a candidate for cardiac catheterization as his creatinine is 5.6, and he is on verge of going on dialysis and he absolutely refuses to go on HD. Stress test today pending 2. Cardiomyopathy ?. BNP is more than 2600. Echocardiogram showed Nl EF and could be due to diastolic dysfunction as . On atenolol 25 mg daily 3. Hypertension, on atenolol and amlodipine, 4. Stage IV renal failure. Further evaluation by Dr. Carpenter. Refusing HD DW Dr Wheeler Subjective Subjective No CP or SOB. Feeling better.Had 3 beats of NSVT. Stress test performed today Objective Last 24 Hour Vital Signs Date Time Temp Pulse Resp B/P (MAP) Pulse Ox O2 Delivery O2 Flow Rate FiO2 12/28/17 12:00 64 12/28/17 12:00 98.3 63 20 137/84 (101) 95 98.3 12/28/17 09:32 Room Air 12/28/17 08:00 99.5 63 18 142/90 (107) 96 99.5 12/28/17 08:00 64 12/28/17 05:41 98.2 64 20 116/65 (82) 97 98.2 12/28/17 04:00 98.2 64 20 116/65 (82) 97 98.2 12/28/17 04:00 59 12/28/17 00:00 60 12/28/17 00:00 97.9 60 20 140/79 (99) 97 97.9 12/27/17 21:00 Room Air 12/27/17 20:00 70 12/27/17 20:00 99.0 68 20 121/84 (96) 97 99.0 12/27/17 16:00 70 12/27/17 16:00 98.0 72 20 131/80 (97) 98 98.0 Laboratory Tests Test 12/28/17 06:35 Sodium Level 138 MMOL/L (136-145) Potassium Level 4.5 MMOL/L (3.5-5.1) Chloride Level 108 MMOL/L (98-107) H Carbon Dioxide Level 20 MMOL/L (21-32) L Anion Gap 10 mmol/L (5-15) Blood Urea Nitrogen 47 mg/dL (7-18) H Creatinine 5.7 MG/DL (0.55-1.30) H Estimat Glomerular Filtration Rate 10.4 mL/min (>60) Glucose Level 100 MG/DL (74-106) Calcium Level 8.8 MG/DL (8.5-10.1) Objective HEAD AND NECK: No JVD LUNGS: Clear. CARDIOVASCULAR: Regular S1 and S2 with no gallop or murmur. ABDOMEN: Soft. EXTREMITIES: No pitting edema. Miko Pineda MD Dec 28, 2017 14:37
[2017-12-28 16:00] VITALS: BP 146/87
--- NOTE | 2017-12-28 16:00 | Diagnostic Imaging Report ---
Indication: chest pain Technique: The study was conducted under the supervision of a data processing auditor. lexiscan (regadenoson) infusion over 10 seconds followed by intravenous administration of 32 mCi of technetium 99m Myoview was performed. Three plane SPECT imaging of the heart was then performed. A resting study was performed as part of the one-day protocol with 9.8 mCi of technetium 99m myoview injected intravenously at that time. Three plane SPECT imaging of the heart was obtained. Comparison: None Clinical data: 1. Clinical response: Non ischemic 2. Electrocardiographic response: Non ischemic Findings: The myocardial perfusion scan demonstrates hypoperfusion to the inferior wall noted on resting SPECT but worse on the Lexiscan SPECT images indicative of infarct with levon-infarct ischemia. Correlate clinically. Similar findings with respect to part of the inferolateral segment near the base of the heart. Correlate clinically. LVEF estimated at 60% IMPRESSION: Suspicion of a inferior wall infarct with levon-infarct ischemia. Correlate clinically. LVEF 60%
--- NOTE | 2017-12-30 10:56 | Discharge Summary ---
Discharge Summary Discharge Summary _ DATE OF ADMISSION: 12/25/2017 DATE OF DISCHARGE: 12/28/2017 REASON FOR ADMISSION: 57 years old male with past medical history significant for diabetes mellitus, hypertension, CVA, neuropathy, chronic kidney disease stage IV, presented to emergency room with complain of chest pain. Upon evaluation vital signs were stable. Troponin was negative. EKG revealed no acute ischemic changes, nonspecific ST changes noted.. Hemoglobin 12.7, hematocrit 38.3. BUN 42, creatinine 5.6. Chest x-ray revealed no acute cardiopulmonary pathology. CT of the head revealed no acute intracranial pathology but was consistent with evidence of old lacunar infarct. Patient admitted with diagnosis of chest pain , rule out acute coronary syndrome CONSULTANTS: toppiece chopper Dr. Pineda [facility] COURSE: Patient admitted to telemetry floor. Serial troponin were negative. EKG revealed nonspecific ST abnormalities, likely secondary to renal failure. Senior Chemist closely followed. Patient was rule out for acute myocardial infarction. Echocardiogram revealed ejection fraction of 55%. Elevated pro BNP likely secondary to renal failure and diastolic dysfunction. Blood pressure was managed with calcium channel souleymane and beta souleymane. Patient was off ELISEO inhibitor secondary to renal failure Renal parameters and electrolytes were closely monitored. Electrolytes were corrected as needed. Nephrotoxics were avoided. Renal ultrasound revealed abnormal appearance of the right kidney possibly due to unilateral nephrosclerosis on the basis of cerebrovascular disease. Nonobstructive stones were suspected in the lower pole of the left kidney. Multiply bilateral renal disease. No evidence of obstructive nephropathy. With creatinine of 5.6 initially thought that patient had acute kidney injury on chronic kidney disease. However creatinine stayed in the same range. Patient likely progressed to stage V chronic kidney disease. Patient declined hemodialysis at this time . Per echo tech, patient will be dialysis dependent in 3-6 months Chronic kidney disease likely secondary to hypertensive nephrosclerosis with a cardiorenal component as per echo tech. Distribution Technician recommended to hold off diuretic for now since patient had no shortness of breath and chest pain resolved. DVT prophylaxis provided. Stress test revealed suspicion of inferior wall infarct with levon-infarct ischemia with calculated ejection fraction of 60%. Senior Chemist cleared patient for discharge since patient declined cardiac catheterization. Hemoglobin and hematocrit were closely monitored with goal to keep hemoglobin above 7. Counts remained stable, prior to discharge hemoglobin 11.8 and hematocrit 34.4 . No Epogen at this time as per echo tech. Gabapentin was continued. Patient was discharged home with outpatient follow-up with the primary care provider FINAL DIAGNOSES: Chronic kidney disease stage V Diastolic dysfunction Hypertension Anemia Chest pain , patient was ruled out for myocardial infarction Neuropathy DISCHARGE MEDICATIONS: See Medication Reconciliation list. DISCHARGE INSTRUCTIONS: Patient was discharged home. Follow up with primary care provider in one week. I have been assigned to dictate discharge summary for this account. I was not involved in the patient's management. Samantha Petersen NP Dec 30, 2017 10:56
== END 2017-12-28 17:47 | disposition home or self-care (01) | DRG 194 ==
LOC: EMR 09:22 → 2E 11:35 → EDBEDREQ 11:40 → 2E 12-27 08:30
DX: I13.2 Hypertensive heart and chronic kidney disease with heart failure and with stage 5 chronic kidney disease, or end stage renal disease (principal); E11.22 Type 2 diabetes mellitus with diabetic chronic kidney disease; I42.9 Cardiomyopathy, unspecified; N18.5 Chronic kidney disease, stage 5; G62.9 Polyneuropathy, unspecified; R07.9 Chest pain, unspecified; D64.9 Anemia, unspecified; Z53.29 Procedure and treatment not carried out because of patient's decision for other reasons; I50.9 Heart failure, unspecified
CPT/HCPCS: 36415; 70450; 71045; 76770; 78452; 80048; 80053; 80307; 82550; 82553; 82962; 83880; 84484; 85025; 93005; 93017; 93306; 99285; J2785

== ENCOUNTER 2018-01-26 16:56 | Emergency (ER) | payer MEDICAID, OTHER ==
[~2018-01-26] VITALS: Ht 177.8 cm; Wt 99.3 kg
[2018-01-26 17:10] VITALS: BP 130/64
--- NOTE | 2018-01-26 17:27 | Emergency Room Report ---
History of Present Illness General Chief Complaint: Chest Pain Source: Patient Present Illness HPI Patient presents to the emergency department today complaining of elevated potassium. Patient states that he has a history of renal failure but he does not want dialysis. According to his cruller maker machine patient needs dialysis. Patient however has declined dialysis. Patient states that he was seen in an outside hospital where it was noted that his potassium was elevated. He saw the doctor had blood work obtained which also showed an elevated potassium which is why he came here for further evaluation. Patient currently still denies wanting dialysis but states that he would like medical treatment. Symptoms noted to be moderate to severe. Patient apparently also complains of chronic chest pain and has been admitted multiple times to different hospitals in behavioral health worker and has had suggestions were possible cardiac cath. However because of patient's renal insufficiency and refusal to obtain dialysis cardiac cath has not been performed. Patient does not have any new chest pain but he has chronic chest pain which was what was complained to the triage nurse. I also confirmed this with patient's primary care physician who knows the patient well and states the patient always complains about chest pain and has had extensive workup in the past. There is nothing acute to be done other than laboratory workup. No other modifying factors. No other associated signs and symptoms. No other complaints were noted. Allergies: Coded Allergies: No Known Allergies (Unverified , 08/10/13) Patient History Past Medical History: DM, HTN, CAD Past Surgical History: none Pertinent Family History: none Social History: Denies: smoking, alcohol use, drug use Reviewed Nursing Documentation: PMH: Agreed; PSxH: Agreed Nursing Documentation-PM Past Medical History: No History, Except For Hx Cardiac Problems: Yes Hx Hypertension: Yes Hx Diabetes: Yes Hx Cancer: No Hx Gastrointestinal Problems: No Hx Dialysis: No - renal failure Hx Neurological Problems: No Hx Cerebrovascular Accident: Yes - pt. cannot remember date Hx Dizziness: Yes Hx Headaches: Yes Hx Numbness: Yes - left arm Review of Systems All Other Systems: negative except mentioned in HPI Physical Exam Vital Signs Date Time Temp Pulse Resp B/P (MAP) Pulse Ox O2 Delivery O2 Flow Rate FiO2 01/26/18 17:02 98.0 64 18 153/93 98 Room Air 98.1 Sp02 EP Interpretation: reviewed, normal General Appearance: normal inspection, well appearing, no apparent distress, alert Head: atraumatic Eyes: bilateral eye normal inspection ENT: normal ENT inspection, hearing grossly normal, normal voice Neck: normal inspection, full range of motion, supple, no bony tend Respiratory: normal inspection, lungs clear, normal breath sounds, no respiratory distress, no retraction, no wheezing Cardiovascular #1: regular rate, rhythm, no edema Gastrointestinal: normal inspection, normal bowel sounds, non tender, soft, no guarding, no hernia Genitourinary: no CVA tenderness Musculoskeletal: normal inspection, back normal, normal range of motion Neurologic: normal inspection, alert, responsive, speech normal Psychiatric: normal inspection, judgement/insight normal, mood/affect normal Skin: normal inspection, normal color, no rash Medical Decision Making Diagnostic Impression: Primary Impression: Renal insufficiency Additional Impression: Renal failure ER Course Patient presents emergency department today with history elevated potassium and chronic chest pain. Patient's laboratory workup however was negative. Patient' s troponin was also negative. Given patient's symptoms are chronic in character I felt that there is no further workup indicated at this time. I did discuss this in detail patient's primary care physician and cruller maker machine Dr. Wheeler. Patient has a follow-up appointment on morning. Patient states that he will call to follow-up appointment. Given the patient potassium is normal but with history of renal insufficiency and renal failure I felt that was reasonable still give patient Kayexalate.Patient is advised to follow up with primary doctor in 2-3 days and return the emergency room for any worsening symptoms and as needed. Labs Test 01/26/18 17:55 White Blood Count 10.4 K/UL (4.8-10.8) Red Blood Count 3.93 M/UL (4.70-6.10) Hemoglobin 11.8 G/DL (14.2-18.0) Hematocrit 35.4 % (42.0-52.0) Mean Corpuscular Volume 90 FL (80-99) Mean Corpuscular Hemoglobin 30.1 PG (27.0-31.0) Mean Corpuscular Hemoglobin Concent 33.4 G/DL (32.0-36.0) Red Cell Distribution Width 11.0 % (11.6-14.8) Platelet Count 244 K/UL (150-450) Mean Platelet Volume 5.8 FL (6.5-10.1) Neutrophils (%) (Auto) 57.7 % (45.0-75.0) Lymphocytes (%) (Auto) 32.8 % (20.0-45.0) Monocytes (%) (Auto) 6.5 % (1.0-10.0) Eosinophils (%) (Auto) 2.0 % (0.0-3.0) Basophils (%) (Auto) 1.1 % (0.0-2.0) Urine Color Yellow Urine Appearance Clear Urine pH 6.5 (4.5-8.0) Urine Specific [place] 1.010 (1.005-1.035) Urine Protein 4+ (NEGATIVE) Urine Glucose (UA) Negative (NEGATIVE) Urine Ketones Negative (NEGATIVE) Urine Occult Blood 1+ (NEGATIVE) Urine Nitrite Negative (NEGATIVE) Urine Bilirubin Negative (NEGATIVE) Urine Urobilinogen Normal MG/DL (NORMAL) Urine Leukocyte Esterase Negative (NEGATIVE) Urine RBC 0-2 /HPF (0 - 0) Urine WBC 0-2 /HPF (0 - 0) Urine Squamous Epithelial Cells None /LPF (NONE/OCC) Urine Bacteria Few /HPF (NONE) Sodium Level 136 MMOL/L (136-145) Potassium Level 5.0 MMOL/L (3.5-5.1) Chloride Level 102 MMOL/L (98-107) Carbon Dioxide Level 20 MMOL/L (21-32) Anion Gap 14 mmol/L (5-15) Blood Urea Nitrogen 59 mg/dL (7-18) Creatinine 6.1 MG/DL (0.55-1.30) Estimat Glomerular Filtration Rate 9.6 mL/min (>60) Glucose Level 98 MG/DL (74-106) Calcium Level 8.9 MG/DL (8.5-10.1) Total Bilirubin 0.4 MG/DL (0.2-1.0) Aspartate Amino Transf (AST/SGOT) 16 U/L (15-37) Alanine Aminotransferase (ALT/SGPT) 15 U/L (12-78) Alkaline Phosphatase 58 U/L (46-116) Total Creatine Kinase 72 U/L (26-308) Creatine Kinase MB 0.7 NG/ML (0.0-3.6) Creatine Kinase MB Relative Index 0.9 Troponin I 0.000 ng/mL (0.000-0.056) Pro-B-Type Natriuretic Peptide 1812 pg/mL (0-125) Total Protein 8.2 G/DL (6.4-8.2) Albumin 3.9 G/DL (3.4-5.0) Globulin 4.3 g/dL Albumin/Globulin Ratio 0.9 (1.0-2.7) Lipase 297 U/L (73-393) EKG Diagnostic Results Rate: normal Rhythm: NSR ST Segments: no acute changes Rhythm Strip Diag. Results EP Interpretation: yes Rate: 60 Rhythm: NSR, no PVC's, no ectopy Last Vital Signs Date Time Temp Pulse Resp B/P (MAP) Pulse Ox O2 Delivery O2 Flow Rate FiO2 01/26/18 17:02 98.0 64 18 153/93 98 Room Air 98.1 Status: improved Disposition: HOME, SELF-CARE Condition: Stable Alberto Sigala MD Jan 26, 2018 17:27
[2018-01-26] MEDS ORDERED: Sodium Polystyrene Sulfonate 15gm Powder ORAL ONE (17:30)
[2018-01-26] MEDS ORDERED: Aspirin Baby 81mg ORAL ONE (17:30)
[2018-01-26] MEDS ORDERED: Albuterol ud Inhalation HHN ONE (17:30)
[2018-01-26 18:10] LABS: APPEARANCE,URINE CLEAR; BILIRUBIN, URINE NEGATIVE (NEGATIVE); GLUCOSE, URINE (UA) NEGATIVE (NEGATIVE); KETONES,URINE NEGATIVE (NEGATIVE); LEUKOCYTE ESTERASE ,URINE NEGATIVE (NEGATIVE); NITRITE,URINE NEGATIVE (NEGATIVE); PH,URINE 6.5 (4.5-8.0); PROTEIN,URINE 4+ (NEGATIVE); UROBILINOGEN,URINE NORMAL (NORMAL)
[2018-01-26 18:13] LABS: COLOR,URINE YELLOW
[2018-01-26 18:16] LABS: BASOPHILS % (AUTO) 1.1 % (0.0-2.0); HEMATOCRIT 35.4 % (42.0-52.0); HEMOGLOBIN 11.8 G/DL (14.2-18.0); LYMPHOCYTES % (AUTO) 32.8 % (20.0-45.0); MEAN CORPUSCULAR VOLUME 90 FL (80-99); MONOCYTES % (AUTO) 6.5 % (1.0-10.0); NEUTROPHILS % (AUTO) 57.7 % (45.0-75.0); PLATELET COUNT 244 K/UL (150-450); RED BLOOD COUNT 3.93 M/UL (4.70-6.10); WHITE BLOOD COUNT 10.4 K/UL (4.8-10.8)
[2018-01-26 18:20] LABS: ANION GAP 14 mmol/L (5-15); BLOOD UREA NITROGEN 59 mg/dL (7-18); CALCIUM 8.9 MG/DL (8.5-10.1); CARBON DIOXIDE 20 MMOL/L (21-32); CHLORIDE 102 MMOL/L (98-107); CREATININE 6.1 MG/DL (0.55-1.30); SODIUM 136 MMOL/L (136-145)
[2018-01-26 18:33] LABS: ALANINE AMINOTRANSFERASE 15 U/L (12-78); ALBUMIN 3.9 G/DL (3.4-5.0); ALBUMIN/GLOBULIN RATIO 0.9 (1.0-2.7); ALKALINE PHOSPHATASE 58 U/L (46-116); ASPARTATE AMINO TRANSFERASE 16 U/L (15-37); BILIRUBIN,TOTAL 0.4 MG/DL (0.2-1.0); CKMB 0.7 NG/ML (0.0-3.6); CREATINE KINASE 72 U/L (26-308)
[2018-01-26 19:08] VITALS: BP 123/78
--- NOTE | 2018-01-27 09:42 | Diagnostic Imaging Report ---
Indication: Cough Technique: 12/25/2017 Comparison: None Findings: Heart size and mediastinal contours stable line for differences in technique. Again, the heart is mildly enlarged and the aorta is ectatic and tortuous. There is no focal consolidation, pneumothorax or pleural effusion. Osseous structures demonstrate no acute abnormality. IMPRESSION: No radiographic evidence of acute cardiopulmonary disease. No significant interval change from the prior exam.
--- NOTE | 2018-01-27 16:04 | Cardiology Report ---
APPROVED REPORT EKG Measurement Heart [id number] Sinus bradycardia Minimal voltage criteria for LVH, may be normal variant Cannot rule out Inferior infarct, age undetermined Abnormal ECG
== END 2018-01-26 19:10 | disposition home or self-care (01) ==
LOC: EMR 17:34 → CANBEDREQ 19:00 → EMR 19:10
DX: E11.22 Type 2 diabetes mellitus with diabetic chronic kidney disease (principal); I12.9 Hypertensive chronic kidney disease with stage 1 through stage 4 chronic kidney disease, or unspecified chronic kidney disease; N18.9 Chronic kidney disease, unspecified; I25.10 Atherosclerotic heart disease of native coronary artery without angina pectoris
CPT/HCPCS: 36415; 71045; 80053; 81003; 82550; 82553; 83690; 83880; 84484; 85025; 93005; 94640; 94664; 99283